=== PATIENT | female | born 1960 | race Caucasian/White ===

== ENCOUNTER 2022-09-17 06:55 | Emergency (ER) | payer MEDICAID ==
[~2022-09-17] VITALS: Ht 157.5 cm; Wt 58.1 kg
[2022-09-17 07:05] VITALS: BP 131/99
[2022-09-17] MEDS ORDERED: BENZ-300 PO (08:56)
[2022-09-17] MEDS ORDERED: MUC600 PO (08:56)
[2022-09-17] MEDS ORDERED: BENZ200C4 PO (08:56)
[2022-09-17 09:15] VITALS: BP 134/80
== END 2022-09-17 09:15 | disposition home or self-care (01) ==
LOC: MED 06:55
DX: J20.8 Acute bronchitis due to other specified organisms (principal); Z20.822 Contact with and (suspected) exposure to COVID-19; B34.9 Viral infection, unspecified; F32.9 Major depressive disorder, single episode, unspecified; J45.909 Unspecified asthma, uncomplicated; Z90.49 Acquired absence of other specified parts of digestive tract; Z98.890 Other specified postprocedural states; Z79.899 Other long term (current) drug therapy
CPT/HCPCS: 71046; 99284

== ENCOUNTER 2023-07-09 12:57 | Emergency (ER) | payer MEDICAID ==
[~2023-07-09] VITALS: Ht 154.9 cm; Wt 75.7 kg
[~2023-07-09 12:57] MED LIST: BENZ-300 PO; BENZ200C4 PO; MUC600 PO
[2023-07-09 13:10] VITALS: BP 109/78; PULSE 83; RESP 18; TEMP 98.4; O2SAT 98
[2023-07-09 13:51] LABS: FLU A ANTIGEN negative (NEGATIVE); FLU B ANTIGEN NEGATIVE (NEGATIVE)
[2023-07-09] MEDS ORDERED: PROM118S5 PO (14:40)
[2023-07-09] MEDS ORDERED: FLONAS NS (14:40)
[2023-07-09 15:01] VITALS: BP 109/78; PULSE 83; RESP 18; TEMP 98.4; O2SAT 98
== END 2023-07-09 15:01 | disposition home or self-care (01) ==
LOC: MED 12:57
DX: J06.9 Acute upper respiratory infection, unspecified (principal); J45.909 Unspecified asthma, uncomplicated; Z79.899 Other long term (current) drug therapy; Z20.822 Contact with and (suspected) exposure to COVID-19
CPT/HCPCS: 99283

== ENCOUNTER 2024-02-01 14:36 | Emergency (ER) | payer MEDICAID ==
[~2024-02-01] VITALS: Ht 160 cm; Wt 70.0 kg
[~2024-02-01 14:36] MED LIST changes: +FLONAS NS; +PROM118S5 PO
[2024-02-01 14:47] VITALS: BP 113/66; PULSE 72; RESP 16; TEMP 97.8; O2SAT 96
[2024-02-01] MEDS: IBUPROFEN 600 MG TAB PO ONE (16:16)
[2024-02-01 17:20] VITALS: BP 116/68; PULSE 70; RESP 16; TEMP 97.5; O2SAT 98
[2024-02-01] MEDS ORDERED: IBUP-2213 PO (17:28)
== END 2024-02-01 17:34 | disposition home or self-care (01) ==
LOC: MED 14:36
DX: M79.671 Pain in right foot (principal); Z79.899 Other long term (current) drug therapy
CPT/HCPCS: 73630; 99283